=== PATIENT | female | born 1990 | race Caucasian/White ===

== ENCOUNTER 2018-12-21 05:03 | Inpatient (IN) | payer MEDICAID ==
[2018-12-21] MEDS ORDERED: fentaNYL 100 MCG/2 ML SDV ONE (06:29)
[2018-12-21] MEDS ORDERED: fentaNYL 100 MCG/2 ML SDV IVPUSH ONE (06:30)
[2018-12-21] MEDS ORDERED: Sodium Chloride 0.9% 10 ML Syringe FLUSH PRN (08:08)
[2018-12-21] MEDS ORDERED: Lanolin 100% Cream 40 GM Tube TOP PRN (08:08)
[2018-12-21] MEDS ORDERED: Acetaminophen 325 MG Tab, 50 Tab Bulk Bottle PO PRN (08:08)
[2018-12-21] MEDS ORDERED: Ibuprofen 200 MG Tab, 24 Tab Bulk Bottle PO PRN (08:08)
--- NOTE | 2018-12-21 08:21 | PCM.LDHP ---
L&D History of Present Illness - General Date of Service: 12/21/18 (active labor) Admit Problem/Dx: Patient Status Order with Admit Dx/Problem 12/21/18 08:09 Patient Status [ADT] Routine Admission Diagnosis/Problem Admission Diagnosis/Problem Labor established Source of Information: Patient History Limitations: Reports: No Limitations - History of Present Illness Introduction:: This 28 year old presents in active labor at 37 6/7 weeks. Had just transferred care from the [facility] last week. 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: : 5 Para: 1 LMP (Approximate): (abril 01/03/19) Other OB/BYN History: Psychiatric History: Reports: Anxiety, Depression - Infectious Disease History Infectious Disease History: Reports: Chicken Pox - Past Surgical History HEENT Surgical History: Reports: None Social & Family History - Family History Family Medical History: Noncontributory - Tobacco Use Smoking Status *Q: Former Smoker Used Tobacco, but Quit: Yes Month/Year Tobacco Last Used: December - Caffeine Use Caffeine Use: Reports: None - Recreational Drug Use Recreational Drug Use: No H&P Review of Systems - Review of Systems: Review Of Systems: See Below General: Reports: No Symptoms HEENT: Reports: No Symptoms Pulmonary: Reports: No Symptoms Cardiovascular: Reports: No Symptoms Gastrointestinal: Reports: No Symptoms Genitourinary: Reports: No Symptoms Musculoskeletal: Reports: No Symptoms Skin: Reports: No Symptoms Psychiatric: Reports: No Symptoms Neurological: Reports: No Symptoms Hematologic/Lymphatic: Reports: No Symptoms Immunologic: Reports: No Symptoms L&D Exam - Exam Exam: See Below - Vital Signs Vital Signs: Last Vital Signs Temp 98.7 F 12/21/18 05:32 Pulse 84 07/09/19 05:32 Resp 20 12/21/18 05:32 BP 141/82 H 12/21/18 05:32 Pulse Ox 99 12/21/18 05:32 Weight: 147 lb - OB Specific Contraction Intensity: Strong Movement: Active Heart Tones: Present Heart Rate (FHR) Variability: Moderate (6-25 bmp) Presentation: Left Occiput Anterior (BLAS) - Cardoza Score Cardoza Score Cervix Position: Anterior Cardoza Score Consistency: Soft Cardoza Score Effacement: >80% Cardoza Score Dilation: > 5 cm Cardoza Score 's Station: -1 ,0 Cardoza Score Total: 12 - Exam General: Alert, Oriented HEENT: PERRLA, Mucosa Moist & [place], Posterior Pharynx Clear Neck: Supple, Trachea Midline Lungs: Clear to Auscultation Cardiovascular: Regular Rate, Regular Rhythm GI/Abdominal Exam: Normal Bowel Sounds, Soft, No Mass Rectal Exam: Normal Exam Genitourinary: Cervical dilitation, Enlarged uterus Back Exam: Normal Inspection, Full Range of Motion Extremities: No Pedal Edema, Normal Capillary Refill Skin: Warm Neurological: Cranial Nerves Intact, Reflexes Equal Bilateral Psychiatric: Alert, Normal Affect, Normal Mood - Problem List (1) Vaginal delivery SNOMED Code(s): 978912051 ICD Code: O80 - ENCOUNTER FOR FULL-TERM UNCOMPLICATED DELIVERY Status: Acute Current Visit: Yes (2) Active labor SNOMED Code(s): 319789112 ICD Code: [id number] - Status: Acute Current Visit: Yes Problem List Initiated/Reviewed/Updated: Yes Orders Last 24hrs: Active Orders 24 hr Category Date Time Status Patient Status [ADT] Routine ADT 12/21/18 08:09 Active Antiembolic Devices [RC] .Routine Care 12/21/18 08:11 Active Communication Order [RC] ASDIRECTED Care 12/21/18 08:09 Active Non Stress Test [RC] Click to Edit Care 12/21/18 08:09 Active May Shower [RC] ASDIRECTED Care 12/21/18 08:08 Active Notify Provider Vital Signs [RC] PRN Care 12/21/18 08:08 Active Notify Provider [RC] PRN Care 12/21/18 08:09 Active Up ad [place] [RC] ASDIRECTED Care 12/21/18 08:08 Active VTE/DVT Education [RC] Click to Edit Care 12/21/18 08:11 Active Vital Signs [RC] PER UNIT ROUTINE Care 12/21/18 08:09 Active Vital Signs [RC] PFP Care 12/21/18 08:09 Active Regular Diet [DIET] Diet 12/21/18 Breakfast Active CBC WITH AUTO DIFF [HEME] AM Lab 12/22/18 05:11 Ordered Acetaminophen [Tylenol Bulk Bottle] Med 12/21/18 08:08 Ordered 325 mg PO Q4H PRN Ibuprofen [Motrin Bulk Bottle] Med 12/21/18 08:08 Ordered 600 mg PO Q6H PRN Lanolin [Lansinoh HPA] Med 12/21/18 08:08 Ordered 1 gm TOP ASDIRECTED PRN Oxytocin/Normal Saline [Pitocin in NS 20 Units/1,000 ML Med 12/21/18 08:13 Ordered ] 20 unit in 1,000 ml IV ONETIME Sodium Chloride 0.9% [Saline Flush] Med 12/21/18 08:08 Ordered 10 ml FLUSH ASDIRECTED PRN DVT/VTE Prophylaxis Reflex [OM.PC] Routine Oth 12/21/18 08:08 Ordered Peripheral IV Discontinue [OM.PC] Routine Oth 12/21/18 08:10 Ordered Saline Lock Insert [OM.PC] Routine Oth 12/21/18 08:09 Ordered Sitz Bath [OM.PC] Per Unit Routine Oth 12/21/18 08:10 Ordered Resuscitation Status Routine Resus Stat 12/21/18 08:08 Ordered Medication Orders Acetaminophen (Tylenol Bulk Bottle) 325 mg PO Q4H PRN PRN Reason: Pain Emollient Ointment (Lansinoh Hpa) 1 gm TOP ASDIRECTED PRN PRN Reason: Sore Nipples Oxytocin/Sodium Chloride (Pitocin In Ns 20 Units/1,000 Ml) 20 unit in 1,000 mls @ 999 mls/hr IV ONETIME ONE; Protocol Stop: 12/21/18 09:13 Ibuprofen (Motrin Bulk Bottle) 600 mg PO Q6H PRN PRN Reason: Pain Sodium Chloride (Saline Flush) 10 ml FLUSH ASDIRECTED PRN PRN Reason: Keep Vein Open Assessment/Plan Comment:: 12/21/18 28 year old 37 6/7 weeks in active labor Plan anticipate a vaginal delivery
--- NOTE | 2018-12-21 08:31 | PCM.DEL ---
L & D Note - General Info Date of Service: 12/21/18 (childbirth) Mother's Due Date: 01/03/19 - Delivery Note Labor: Spontaneous Delivery Outcome: Livebirth Infant Delivery Method: Spontaneous Vaginal Delivery-Single Delivery Mode: Spontaneous Presentation: Left Occiput Anterior (BLAS) Nuchal Cord: None Anesthesia Type: None Episiotomy Type: None Laceration: None Placenta: Intact, Spontaneous Cord: 3 Vessels Estimated Blood Loss: 100 Resuscitation Needed: No [place]: Bulb Syringe, Stimulated, Warmed, Rowdy Used Provider: Aimee Martinez Score 1 min: 9 Score 5 min: 9 Second Stage Interventions: Reports: Second Nurse Reviewed Heart Tones, Pushing Effectively, Pushing, McRobert's Position Delivery Comments (Free Text/Narrative):: This 28 year old G5 now P2 who is 37 6/7 weeks gestation delivered at 0649 a viable female infant over an intact perineum in BLAS position. She was placed on her mother's abdomen where she was dried and stimulated. She cried spontaneously. Delayed cord clamping and active management of the third stage was used. Apgars 9,9. Three vessel cord. weight 6-6.2. baby was placed skin to skin and is wihtin the first 30 minutes. The placenta was expressed spontaneously intact ambriz. No lacerations tot he cervix, rectum, perineum were found. ELB 100cc Mother and baby to post in stable condition first stage 5594-4668 second stage 9039-7299 third stage 4992-6575 - General Info Date of Service: 12/21/18 Functional Status: Reports: Pain Controlled - Review of Systems General: Reports: No Symptoms HEENT: Reports: No Symptoms Pulmonary: Reports: No Symptoms Cardiovascular: Reports: No Symptoms Gastrointestinal: Reports: No Symptoms Genitourinary: Reports: No Symptoms Musculoskeletal: Reports: No Symptoms Skin: Reports: No Symptoms Neurological: Reports: No Symptoms Psychiatric: Reports: No Symptoms - Patient Data Vitals - Most Recent: Last Vital Signs Temp 98.7 F 12/21/18 05:32 Pulse 84 12/21/18 05:32 Resp 20 12/21/18 05:32 BP 141/82 H 12/21/18 05:32 Pulse Ox 99 12/21/18 05:32 Weight - Most Recent: 147 lb Med Orders - Current: Current Medications Acetaminophen (Tylenol Bulk Bottle) 325 mg PO Q4H PRN PRN Reason: Pain Emollient Ointment (Lansinoh Hpa) 1 gm TOP ASDIRECTED PRN PRN Reason: Sore Nipples Oxytocin/Sodium Chloride (Pitocin In Ns 20 Units/1,000 Ml) 20 unit in 1,000 mls @ 999 mls/hr IV ONETIME ONE; Protocol Stop: 12/21/18 09:13 Ibuprofen (Motrin Bulk Bottle) 600 mg PO Q6H PRN PRN Reason: Pain Sodium Chloride (Saline Flush) 10 ml FLUSH ASDIRECTED PRN PRN Reason: Keep Vein Open Discontinued Medications Fentanyl (Sublimaze) Confirm Administered Dose 100 mcg .ROUTE .STK-MED ONE Stop: 12/21/18 06:30 Oxytocin/Sodium Chloride (Pitocin In Ns 20 Units/1,000 Ml) Confirm Administered Dose 20 unit in 1,000 mls @ as directed .ROUTE .STK-MED ONE Stop: 12/21/18 05:52 - Exam General: Alert, Oriented HEENT: Pupils Equal, Pupils Reactive, Mucous Membr. Moist/[place] Neck: Supple Lungs: Clear to Auscultation, Normal Respiratory Effort Cardiovascular: Regular Rate, Regular Rhythm GI/Abdominal Exam: Normal Bowel Sounds, Soft, No Mass (Female) Exam: Cervical Dilatation, Enlarged Uterus, Vaginal Bleeding Back Exam: Normal Inspection, Full Range of Motion Extremities: Normal Inspection, No Pedal Edema, Normal Capillary Refill - Problem List & Annotations (1) Vaginal delivery SNOMED Code(s): 849585838 Code(s): O80 - ENCOUNTER FOR FULL-TERM UNCOMPLICATED DELIVERY Status: Acute Current Visit: Yes (2) Active labor SNOMED Code(s): 714557781 Code(s): AHS2121 - Status: Acute Current Visit: Yes - Problem List Review Problem List Initiated/Reviewed/Updated: Yes - My Orders Last 24 Hours: My Active Orders 12/21/18 08:08 May Shower [RC] ASDIRECTED Notify Provider Vital Signs [RC] PRN Up ad Chely [RC] ASDIRECTED Acetaminophen [Tylenol Bulk Bottle] 325 mg PO Q4H PRN Ibuprofen [Motrin Bulk Bottle] 600 mg PO Q6H PRN Lanolin [Lansinoh HPA] 1 gm TOP ASDIRECTED PRN Sodium Chloride 0.9% [Saline Flush] 10 ml FLUSH ASDIRECTED PRN DVT/VTE Prophylaxis Reflex [OM.PC] Routine Resuscitation Status Routine 12/21/18 08:09 Patient Status [ADT] Routine Communication Order [RC] ASDIRECTED Non Stress Test [RC] Click to Edit Vital Signs [RC] PER UNIT ROUTINE Vital Signs [RC] PFP Saline Lock Insert [OM.PC] Routine 12/21/18 08:10 Peripheral IV Discontinue [OM.PC] Routine Sitz Bath [OM.PC] Per Unit Routine 12/21/18 08:11 Antiembolic Devices [RC] .Routine VTE/DVT Education [RC] Click to Edit 12/21/18 08:13 Oxytocin/Normal Saline [Pitocin in NS 20 Units/1,000 ML] 20 unit in 1,000 ml IV ONETIME 12/21/18 Breakfast Regular Diet [DIET] 12/22/18 05:11 CBC WITH AUTO DIFF [HEME] AM - Assessment Assessment:: 12/21/18 28 year old G5now P2 without complications - Plan Plan:: 12/21/18 28 year old 37 6/7 weeks in active labor Plan anticipate a vaginal delivery 12/21/18 Routine post cares support 24-48 stay
--- NOTE | 2018-12-22 08:56 | PCM.PNPP ---
- General Info Date of Service: 12/22/18 Functional Status: Reports: Pain Controlled - Review of Systems General: Reports: No Symptoms HEENT: Reports: No Symptoms Pulmonary: Reports: No Symptoms Cardiovascular: Reports: No Symptoms Gastrointestinal: Reports: No Symptoms Genitourinary: Reports: No Symptoms Musculoskeletal: Reports: No Symptoms Skin: Reports: No Symptoms Neurological: Reports: No Symptoms Psychiatric: Reports: No Symptoms - General Info Date of Service: 12/22/18 - Patient Data Vital Signs - Most Recent: Last Vital Signs Temp 35.7 C 12/22/18 02:59 Pulse 71 12/22/18 02:59 Resp 16 12/22/18 02:59 BP 123/65 12/22/18 02:59 Pulse Ox 100 12/22/18 02:59 Weight - Most Recent: 66.678 kg I&O - Last 24 Hours: Intake & Output 12/21/18 12/22/18 12/22/18 22:59 06:59 14:59 Intake Total 2900 Balance 2900 Lab Results - Last 24 Hours: Laboratory Results - last 24 hr 12/22/18 Range/Units 06:17 WBC 11.8 H (4.5-11.0) K/uL RBC 3.99 (3.30-5.50) M/uL Hgb 12.2 (12.0-15.0) g/dL Hct 37.0 (36.0-48.0) % MCV 93 (80-98) fL MCH 31 (27-31) pg MCHC 33 (32-36) % Plt Count 154 (150-400) K/uL Neut % (Auto) 74 H (36-66) % Lymph % (Auto) 18 L (24-44) % [place] % (Auto) 5 (2-6) % Eos % (Auto) 2 (2-4) % Baso % (Auto) 0 (0-1) % Med Orders - Current: Current Medications Acetaminophen (Tylenol Bulk Bottle) 325 - 650 mg PO Q4H PRN PRN Reason: Pain Last Admin: 12/21/18 08:37 Dose: 1 bottle Emollient Ointment (Lansinoh Hpa) 1 gm TOP ASDIRECTED PRN PRN Reason: Sore Nipples Last Admin: 12/21/18 16:16 Dose: 1 applic Ibuprofen (Motrin Bulk Bottle) 600 mg PO Q6H PRN PRN Reason: Pain Last Admin: 12/21/18 08:37 Dose: 1 bottle Sodium Chloride (Saline Flush) 10 ml FLUSH ASDIRECTED PRN PRN Reason: Keep Vein Open Discontinued Medications Fentanyl (Sublimaze) 100 mcg IVPUSH ONETIME ONE Stop: 12/21/18 06:31 Last Admin: 12/21/18 06:30 Dose: 100 mcg Oxytocin/Sodium Chloride (Pitocin In Ns 20 Units/1,000 Ml) 20 unit in 1,000 mls @ 999 mls/hr IV ONETIME ONE; Protocol Stop: 12/21/18 09:13 Last Admin: 12/21/18 08:42 Dose: 999 mls/hr, 999 mls/hr - Interaction Disposition, : in Room with Family Infant Interaction: Holding Feeding: Breastfed ; Nursed Well Support Person: Significant Other - Recovery Exam Fundal Tone: Firm Fundal Level: 1 Fingerbreadths Below Umbilicus Fundal Placement: Midline Lochia Amount: Moderate Lochia Color: Rubra/Red Perineum Description: Intact, Minimal Bruising/Swelling Episiotomy/Laceration: None Bladder Status: Voiding Urinary Elimination: Voided - Exam General: Alert, Oriented, Cooperative HEENT: Pupils Equal Neck: Supple Lungs: Clear to Auscultation, Normal Respiratory Effort Cardiovascular: Regular Rate, Regular Rhythm GI/Abdominal Exam: Normal Bowel Sounds, Soft, Non-Tender, No Organomegaly, No Distention, No Abnormal Bruit, No Mass, Pelvis Stable Extremities: Normal Inspection, Normal Range of Motion, Non-Tender, No Pedal Edema, Normal Capillary Refill Skin: Warm, Dry, Intact Neurological: No New Focal Deficit Psy/Mental Status: Alert, Normal Affect, Normal Mood - Problem List & Annotations (1) (infant) SNOMED Code(s): 314180714 Code(s): Z78.9 - OTHER SPECIFIED HEALTH STATUS Status: Acute Current Visit: Yes (2) Vaginal delivery SNOMED Code(s): 787187941 Code(s): O80 - ENCOUNTER FOR FULL-TERM UNCOMPLICATED DELIVERY Status: Acute Current Visit: Yes - Problem List Review Problem List Initiated/Reviewed/Updated: Yes - Assessment Assessment:: 12/21/18 28 year old G5now P2 without complications 12/22/2018 day one Fundus firm and bleeding decreased Happy with delivery well Plan discharge home today per mother's request - Plan Plan:: 12/21/18 28 year old 37 6/7 weeks in active labor Plan anticipate a vaginal delivery 12/21/18 Routine post cares support 24-48 stay 12/22/2018 Continue routine cares Continue to support and encourage Plan discharge home today To see Aimee in six weeks in clinic for care
== END 2018-12-22 11:45 | disposition home or self-care (01) | DRG 807 ==
LOC: JP.OBCHECK 05:03 → JP.OB 06:32 → OBSVTOIN 06:39 → JP.OB 06:39 → JP.MS 06:49
PROVIDERS: ADMIT Nurse Practitioner Family; ATTEND Nurse Practitioner Family
PROC: 10E0XZZ Delivery of Products of Conception, External Approach (ICD-10-PCS; principal; 2018-12-21)
DX: O99.344 Other mental disorders complicating childbirth (principal); Z37.0 Single live birth; F32.9 Major depressive disorder, single episode, unspecified; F41.9 Anxiety disorder, unspecified; O99.62 Diseases of the digestive system complicating childbirth; K21.9 Gastro-esophageal reflux disease without esophagitis; Z3A.37 37 weeks gestation of pregnancy; Z87.891 Personal history of nicotine dependence; Z87.442 Personal history of urinary calculi; Z88.8 Allergy status to other drugs, medicaments and biological substances; O99.89 Other specified diseases and conditions complicating pregnancy, childbirth and the puerperium; R10.9 Unspecified abdominal pain
CPT/HCPCS: 36415; 59409; 80305-QW; 81001; 85025; 99211; A9270-GY; J2590; J3010